=== PATIENT | male | born 1960 | race Two or more races ===

== ENCOUNTER 2018-03-31 06:00 | Day surgery (SDC) | payer OTHER ==
[~2018-03-31 06:00] MED LIST: CLARITIN10 M1 PO; COZAAR50 MG PO; GLUCOPHAGE XR500 MG PO; HORIZANT300 MG PO; LIPITOR40 MG PO; TOPROL XL25 M1 PO; ZOLOFT50 MG PO; ZOLPIDEM PO; [UNRECOGNIZED DRUG - OTHER] PO
[2018-03-31] MEDS ORDERED: COLACE100 MG PO (10:00)
[2018-03-31] MEDS ORDERED: PERCOCET 5-3251 EACH PO (10:00)
== END 2018-03-31 18:40 | disposition home or self-care (01) ==
LOC: CIR.AMB 06:00
DX: K64.8 Other hemorrhoids (principal); K62.89 Other specified diseases of anus and rectum